=== PATIENT | female | born 1980 | race Caucasian/White ===

== ENCOUNTER 2020-10-22 20:47 | Emergency (ER) | payer OTHER ==
[2020-10-22 22:01] VITALS: BP 129/84; PULSE 82; TEMP 97.8; BMI 32.5
[2020-10-22] MEDS ORDERED: KETOROLAC TROMETHAMINE 30 MG/1 ML VIAL IM ONE (23:13)
[2020-10-22] MEDS ORDERED: KETOROLAC TROMETHAMINE 30 MG/1 ML VIAL ONE (23:27)
[2020-10-22 23:39] LABS: EPI CELLS 11 /uL (0-25.1); HCG,QUALITATIVE URINE Negative; HYALINE CASTS 1 /uL (0-3.1); URINE APPEARANCE CLEAR; URINE BILIRUBIN NEGATIVE (NEGATIVE); URINE COLOR YELLOW; URINE GLUCOSE (UA) NEGATIVE (NEGATIVE); URINE KETONE TRACE (NEGATIVE); URINE LEUK ESTERASE TRACE (NEGATIVE); URINE NITRITE NEGATIVE (NEGATIVE); URINE PROTEIN TRACE (NEGATIVE); URINE RBC 2356 /uL (0-23.9); URINE WBC 8 /uL (0-25.8)
[2020-10-22 23:45] LABS: URINE BACTERIA 11.1 /uL (0-1359)
== END 2020-10-23 02:29 | disposition left against medical advice (07) ==
LOC: JER 20:47
DX: R10.30 Lower abdominal pain, unspecified (principal)
CPT/HCPCS: 72170-TC-FY; 72192-TC; 81003; 84703; 87086; 99284-25